=== PATIENT | female | born 1960 | race Caucasian/White ===

== ENCOUNTER 2016-07-29 14:36 | Emergency (ER) | payer BC, MEDICAID ==
[~2016-07-29] VITALS: Ht 154.9 cm; Wt 58.4 kg
[2016-07-29 14:38] VITALS: BP 154/99
== END 2016-07-29 15:51 | disposition home or self-care (01) ==
LOC: ED 15:45
DX: B34.9 Viral infection, unspecified (principal)
CPT/HCPCS: 71020; 99284

== ENCOUNTER 2019-12-24 16:28 | Emergency (ER) | payer BC, MEDICAID ==
[~2019-12-24] VITALS: Ht 154.9 cm; Wt 61.1 kg
[2019-12-24 16:46] VITALS: BP 150/93
== END 2019-12-24 17:46 | disposition home or self-care (01) ==
LOC: ED 17:25
DX: J34.89 Other specified disorders of nose and nasal sinuses (principal)
CPT/HCPCS: 99283